=== PATIENT | female | born 1960 | race African-American/Black ===

== ENCOUNTER 2016-12-14 04:21 | Emergency (ER) | payer OTHER ==
[~2016-12-14] VITALS: Ht 160 cm; Wt 77.0 kg
[~2016-12-14 04:21] MED LIST: CEPH500C3 PO; OXYC-360 PO
[2016-12-14] MEDS ORDERED: ONDANSETRON HCL 4 MG/2 ML VIAL IV ONE (04:30)
[2016-12-14] MEDS ORDERED: SODIUM CHLORIDE 0.9% FLUSH 5 ML FLUSH IVF PRN (04:30)
[2016-12-14] MEDS ORDERED: LISI-515 PO (04:31)
[2016-12-14 04:32] VITALS: BP 100/72; PULSE 62; RESP 18; TEMP 97.8; O2SAT 97
--- NOTE | 2016-12-14 04:33 | PD ---
HPI Chief Complaint: Syncope/Near-Syncope Time Seen by Provider: 04:24 Travel History International Travel<30 days: No Contact w/Intl Traveler<30days: No Traveled to known affect area: No History of Present Illness HPI The patient is a 56-year-old female that around 2:00 this morning felt nausea, had a diarrhea stool and has not been eating or drinking very much in the last 24 hours. She had some near syncopal spells. When he back came her systolic blood pressures in the 80s and she had no radial pulse. The people at home said she almost lost consciousness. She did not injure herself. The ambulance personnel gave her 500 cc of saline and the blood pressure came up. She denies any fever or headache. She denies chest pain or shortness of breath. She does have some left upper quadrant abdominal discomfort which is minimal. The patient is a to [facility] care patient of Dr. Singh. [facility] Past Medical History Heart Rhythm Problems: No Cancer: No Cardiovascular Problems: Yes High Cholesterol: No Chest Pain: No Congestive Heart Failure: No Cerebrovascular Accident: No Diabetes: No Glaucoma: No Genitourinary: No Headaches: No Hepatitis: No Hiatal Hernia: No Hypertension: No Musculoskeletal: No Neurologic: Yes (DIZZINESS) Reproductive: Yes Respiratory: No Migraines: No Myocardial Infarction: No Seizures: No Thyroid Disease: No Past Surgical History Abdominal Surgery: No Cardiac Surgery: No Ear Surgery: No Endocrine Surgery: No Eye Surgery: No Genitourinary Surgery: No Gynecologic Surgery: No Oral Surgery: Yes (TOOTH EXTRACTION) Pacemaker: No Thoracic Surgery: No Social History Alcohol Use: No Tobacco Use: No Substance Use: No Allergies-Medications (Allergen,Severity, Reaction): Coded Allergies: No Known Allergies (Verified , 12/14/16) Reported Meds & Prescriptions Reported Meds & Active Scripts Active Reported Lisinopril 20 Mg Tab 20 Mg PO DAILY Review of Systems Except as stated in HPI: all other systems reviewed are Neg Physical Exam Narrative GENERAL: The patient is alert, oriented 3 in no apparent distress. Vital signs show temperature 100/72 with a pulse rate of 62 but otherwise normal. SKIN: Warm and dry. HEAD: Atraumatic. Normocephalic. EYES: Pupils equal and round. No scleral icterus. No injection or drainage. ENT: No nasal bleeding or discharge. Mucous membranes pink and moist. NECK: Trachea midline. No JVD. CARDIOVASCULAR: Regular rate and rhythm. No murmur appreciated. RESPIRATORY: No accessory muscle use. Clear to auscultation. Breath sounds equal bilaterally. GASTROINTESTINAL: Abdomen soft, non-tender, nondistended. Hepatic and splenic margins not palpable. MUSCULOSKELETAL: No obvious deformities. No clubbing. No cyanosis. No edema. NEUROLOGICAL: Awake and alert. No obvious cranial nerve deficits. Motor grossly within normal limits. Normal speech. PSYCHIATRIC: Appropriate mood and affect; insight and judgment normal. Data Data Last Documented VS Vital Signs Date Time Temp Pulse Resp B/P Pulse Ox O2 Delivery O2 Flow Rate FiO2 12/14/16 05:32 62 18 96/67 97 Room Air 12/14/16 04:32 97.8 Orders Ondansetron Inj (Zofran Inj) (12/14/16 04:30) Sodium Chlor 0.9% 1000 Ml Inj (Ns 1000 M (12/14/16 04:30) Complete Blood Count With Diff (12/14/16 04:26) Comprehensive Metabolic Panel (12/14/16 04:26) Lipase (12/14/16 04:26) Urinalysis - C+S If Indicated (12/14/16 04:26) Iv Access Insert/Monitor (12/14/16 04:26) Ecg Monitoring (12/14/16 04:26) Oximetry (12/14/16 04:26) Sodium Chloride 0.9% Flush (Ns Flush) (12/14/16 04:30) Electrocardiogram (12/14/16 04:40) Potassium Chloride (Kcl) (12/14/16 05:30) Labs Laboratory Tests Test 12/14/16 04:35 White Blood Count 10.3 TH/MM3 Red Blood Count 6.21 MIL/MM3 Hemoglobin 13.4 GM/DL Hematocrit 42.8 % Mean Corpuscular Volume 69.0 FL Mean Corpuscular Hemoglobin 21.6 PG Mean Corpuscular Hemoglobin 31.3 % Concent Red Cell Distribution Width 15.0 % Platelet Count 243 TH/MM3 Mean Platelet Volume 8.9 FL Neutrophils (%) (Auto) 80.3 % Lymphocytes (%) (Auto) 15.7 % Monocytes (%) (Auto) 3.4 % Eosinophils (%) (Auto) 0.4 % Basophils (%) (Auto) 0.2 % Neutrophils # (Auto) 8.3 TH/MM3 Lymphocytes # (Auto) 1.6 TH/MM3 Monocytes # (Auto) 0.4 TH/MM3 Eosinophils # (Auto) 0.0 TH/MM3 Basophils # (Auto) 0.0 TH/MM3 CBC Comment AUTO DIFF Differential Comment AUTO DIFF CONFIRMED Platelet Estimate NORMAL Platelet Morphology Comment CLUMPED Sodium Level 141 MEQ/L Potassium Level 3.1 MEQ/L Chloride Level 104 MEQ/L Carbon Dioxide Level 28.3 MEQ/L Anion Gap 9 MEQ/L Blood Urea Nitrogen 8 MG/DL Creatinine 0.97 MG/DL Estimat Glomerular Filtration 71 ML/MIN Rate Random Glucose 170 MG/DL Calcium Level 8.6 MG/DL Total Bilirubin 0.4 MG/DL Aspartate Amino Transf 17 U/L (AST/SGOT) Alanine Aminotransferase 23 U/L (ALT/SGPT) Alkaline Phosphatase 60 U/L Total Protein 7.2 GM/DL Albumin 3.6 GM/DL Lipase 88 U/L [facility] [place] Medical Decision Making Medical Screen Exam Complete: Yes Emergency Medical Condition: Yes Medical Record Reviewed: Yes Interpretation(s) The CBC is normal except for 80% neutrophils. The complete metabolic profile shows a potassium of 3.1, glucose of 170, GFR of 71 but is otherwise unremarkable. The lipase is normal. Differential Diagnosis Dehydration, hypo-/hyperglycemia, electrolyte disorder, gastroenteritis, gastritis, urinary tract infection Narrative Course It is now 0620 and the blood pressure is 115/67. The patient has now been hydrated adequately and she has made some urine. Patient feels much better at this time. Impression: Viral gastroenteritis Plan: The patient be given Zofran. She should follow-up with Dr. Singh as soon as possible. Diagnosis Primary Impression: Viral gastroenteritis Additional Impressions: Mild dehydration Hypotension Pre-syncope Additional Instructions: Follow-up with Dr. Singh as soon as possible. The Zofran is one tablet every 4-6 hours as needed for nausea. Make sure you stay well-hydrated. Med/Other Pt SpecificInfo: Prescription(s) given Scripts Ondansetron (Zofran)4 Mg Tab4 Mg PO Q6HR PRN (NAUSEA OR VOMITING) #20 TAB Ref 0 Prov:Shahzad Amado MD 12/14/16 Disposition: DISCHARGE HOME Condition: Stable Shahzad Amado MD Dec 14, 2016 04:33
[2016-12-14 04:36] VITALS: RESP 18; O2SAT 97
[2016-12-14 04:44] LABS: AUTOMATED NEUTROPHIL # 8.3 TH/MM3 (1.8-7.7); BASOPHIL % 0.2 % (0.0-2.0); EOSINOPHIL % 0.4 % (0.0-4.0); HEMATOCRIT 42.8 % (35.0-46.0); LYMPH % 15.7 % (9.0-44.0); LYMPHOCYTE # 1.6 TH/MM3 (1.0-4.8); MEAN CORPUSCULAR HEMOGLOBIN 21.6 PG (27.0-34.0); MEAN CORPUSCULAR HGB CONC 31.3 % (32.0-36.0); MONO % 3.4 % (0.0-8.0); NEUT % 80.3 % (16.0-70.0); PLATELET COUNT 243 TH/MM3 (150-450); RED BLOOD COUNT 6.21 MIL/MM3 (4.00-5.30); WHITE BLOOD COUNT 10.3 TH/MM3 (4.0-11.0)
[2016-12-14] MEDS: SODIUM CHLOR 0.9% 1000 ML INJ 1,000 ML IV SCH ×2 (04:47→05:05)
[2016-12-14 04:52] LABS: HEMO FLAGS AUTO DIFF
[2016-12-14 05:00] LABS: CHLORIDE 104 MEQ/L (98-107); POTASSIUM 3.1 MEQ/L (3.5-5.1); SODIUM (NA) 141 MEQ/L (136-145)
[2016-12-14 05:04] LABS: ANION GAP 9 MEQ/L (5-15); BICARBONATE 28.3 MEQ/L (21.0-32.0)
[2016-12-14 05:05] LABS: BLOOD UREA NITROGEN 8 MG/DL (7-18); PLATELET ESTIMATE SMEAR NORMAL (NORMAL); PLATELET MORPHOLOGY CLUMPED (NORMAL); SCAN/DIFF AUTO DIFF CONFIRMED
[2016-12-14 05:07] LABS: ALT (GPT) 23 U/L (10-53); AST (GOT) 17 U/L (15-37); GLOMERULAR FILTRATION RATE 71 ML/MIN (>89)
[2016-12-14 05:09] LABS: TOTAL BILIRUBIN ADULT 0.4 MG/DL (0.2-1.0)
[2016-12-14 05:10] LABS: ALKALINE PHOSPHATASE 60 U/L (45-117)
[2016-12-14] MEDS ORDERED: POTASSIUM CHLORIDE 20 MEQ CONTROLLED RELEASE TAB PO ONE (05:30)
[2016-12-14 05:32] VITALS: BP 96/67; PULSE 62; RESP 18; O2SAT 97
[2016-12-14 06:22] VITALS: BP 115/67; PULSE 61; RESP 18; O2SAT 96
[2016-12-14] MEDS ORDERED: ZOFR4TAB PO (06:24)
[2016-12-14 06:44] LABS: BLOOD, URINE TRACE (NEG); GLUCOSE,URINE NEG (NEG); KETONE, URINE NEG (NEG); NITRITE,URINE NEG (NEG); PH, URINE 6.5 (5.0-8.5)
[2016-12-14 06:49] LABS: METHOD OF COLLECTION CLEAN CATCH; URINE COLOR YELLOW (YELLW/STRAW)
[2016-12-14 06:51] LABS: BACTERIA, URINE RARE /hpf; COMMENT (UR) CULT NOT INDICATED; COMMENT2 (UR) MUCOUS PRESENT; CULTURE IF INDICATED CULT NOT INDICATED; HYALINE CAST, URINE 0-2 /lpf (RARE); SQUAMOUS EPITHELIAL CELL URINE 0-5 /hpf (0-5)
[2016-12-14 06:54] VITALS: BP 101/71; PULSE 81; RESP 18; O2SAT 99
--- NOTE | 2016-12-14 14:34 | EKG ---
Date Performed: 12/14/2016 Time Performed: 04:41:08 PTAGE: 56 years EKG: Sinus bradycardia Prolonged QT interval, new since prior tracing, rule out drug effect, ida ctrolyte embalance or myocardial ischemia Borderline ECG PREVIOUS TRACING : 07/01/2009 12.32 DOCTOR: Mel Ramon Interpretating Date/Time 12/14/2016 14:33:34
== END 2016-12-14 07:13 | disposition home or self-care (01) ==
LOC: PHED 04:21
DX: A08.4 Viral intestinal infection, unspecified (principal); E86.0 Dehydration; I95.9 Hypotension, unspecified; R55 Syncope and collapse
CPT/HCPCS: 80053; 81001; 83690; 85025; 93005; 96361; 96374; 99284; J2405; J7030

== ENCOUNTER 2018-01-15 18:54 | Observation (INO) | payer OTHER ==
[~2018-01-15] VITALS: Ht 160 cm; Wt 75.0 kg
[~2018-01-15 18:54] MED LIST changes: -CEPH500C3 PO; +LISI-515 PO; -OXYC-360 PO; +ZOFR4TAB PO
[2018-01-15 19:03] VITALS: BP 200/95; PULSE 68; RESP 18; TEMP 98.7; O2SAT 99
[2018-01-15 19:21] VITALS: BP 172/102; PULSE 60; RESP 20; TEMP 98; O2SAT 99
[2018-01-15 19:23] VITALS: RESP 20
--- NOTE | 2018-01-15 19:42 | PD ---
HPI Chief Complaint: Chest Pain Time Seen by Provider: 19:18 Travel History International Travel<30 days: No Contact w/Intl Traveler<30days: No Traveled to known affect area: No History of Present Illness HPI The patient is a 57 year old female who presents to [facility] emergency department with a history of "chest discomfort" that began this afternoon. It began when she was at the playground with her grandchild. She reports that she first began to have right arm numbness, nausea, and a headache that started an hour prior to the chest pain beginning. She reports that the headache is now resolved along with the nausea and right arm numbness. She denies having any weakness of her arms or legs. She denies having any other tingling sensations, facial droop, difficulty with word finding ability, or slurred speech. The chest pain is located on the left side of the chest. It is improved with deep breathing. She denies any aggravating factors. She reports having a prior history of hypertension, hyperlipidemia. FH: no CAD. She denies any prior history of diabetes or tobacco use she denies any personal history of heart disease, DVT or PE. On review of systems otherwise, the patient denies having any known recent fevers, cough, congestion, neck pain, shortness of breath, abdominal pain, vomiting, diarrhea, urinary symptoms, or other neurologic symptoms. [facility] Past Medical History Narrative Medical The patient's past medical history is significant for hypertension, hyperlipidemia. Heart Rhythm Problems: No Cancer: No Cardiovascular Problems: Yes High Cholesterol: No Chest Pain: No Congestive Heart Failure: No Cerebrovascular Accident: No Diabetes: No Diminished Hearing: No Gastrointestinal Disorders: No Glaucoma: No Genitourinary: No Headaches: No Hepatitis: No Hiatal Hernia: No Hypertension: Yes Musculoskeletal: No Neurologic: Yes Reproductive: Yes Respiratory: No Migraines: No Myocardial Infarction: No Seizures: No Thyroid Disease: No Tetanus Vaccination: < 5 Years Influenza Vaccination: No Menopausal: Yes Past Surgical History Narrative Surgical The patient's past surgical history is significant for dental extractions, hysterectomy Abdominal Surgery: No Cardiac Surgery: No Ear Surgery: No Endocrine Surgery: No Eye Surgery: No Genitourinary Surgery: No Gynecologic Surgery: No Hysterectomy: Yes (parial) Neurologic Surgery: No Oral Surgery: Yes (TOOTH EXTRACTION) Pacemaker: No Thoracic Surgery: No Other Surgery: No Social History Alcohol Use: Yes (occasional wine) Tobacco Use: No Substance Use: No Allergies-Medications (Allergen,Severity, Reaction): Coded Allergies: hydrocodone (Verified Allergy, Severe, 01/15/18) nausea and vomiting Reported Meds & Prescriptions Reported Meds & Active Scripts Active Reported Lisinopril 20 Mg Tab 20 Mg PO DAILY Review of Systems Except as stated in HPI: all other systems reviewed are Neg General / Constitutional: No: Fever Eyes: No: Visual changes HENT: No: Headaches, Rhinorrhea, Congestion Cardiovascular: Positive: Chest Pain or Discomfort, No: Dyspnea on exertion Respiratory: No: Shortness of Breath Gastrointestinal: Positive: Nausea, No: Vomiting, Diarrhea, Abdominal Pain, Changes in Bowel Habits Genitourinary: No: Dysuria Musculoskeletal: No: Pain Skin: No Rash Neurologic: Positive: Paresthesia, No: Weakness, Focal Abnormalities, Change in Mentation, Slurred Speech Psychiatric: No: Depression Endocrine: No: Polydipsia Hematologic/Lymphatic: No: Easy Bruising Physical Exam Narrative General: The patient is a well-developed well-nourished female in no acute distress. Head and Neck exam: Head is normocephalic atraumatic. Eyes: EOMI, pupils are equal round and reactive to light. Nose: Midline septum with pink mucous membranes Mouth: Dentition unremarkable. Moist mucus membranes. Posterior oropharynx is not erythematous. No tonsillar hypertrophy. Uvula midline. Airway patent. Neck: No palpable lymphadenopathy. No nuchal rigidity. No thyromegaly. Cardiovascular: Regular rate and rhythm without murmurs, gallops, or rubs. No pulse deficit to the extremities on simultaneous auscultation and palpation of her radial artery. Lungs: Clear to auscultation bilaterally. No wheezes, rhonchi, or rales. Abdomen: Soft, without tenderness to palpation in all 4 quadrants of the abdomen. No guarding, rebound, or rigidity. Normal bowel sounds are audible. No tenderness on palpation of McBurney's point. Extremities: No clubbing, cyanosis, or edema. 2+ pulses in all 4 extremities. No calf tenderness on palpation Back: No costovertebral angle tenderness to palpation. Neurologic Exam: Cranial nerves 2-12 were intact on exam. Strength is 5/5 in all 4 extremities. No sensory deficits noted. No dysdiadochokinesis. Good finger to nose and Heel to sen bilaterally. Skin Exam: No rash noted. Intact skin that is warm and dry. Data Data Last Documented VS Vital Signs Date Time Temp Pulse Resp B/P (MAP) Pulse Ox O2 Delivery O2 Flow Rate FiO2 01/15/18 20:32 98.2 62 20 161/90 (113) 99 Room Air Orders Orders Electrocardiogram (01/15/18 19:18) Complete Blood Count With Diff (01/15/18:18) Comprehensive Metabolic Panel (01/15/18:18) Creatine Kinase (Cpk) (01/15/18 19:18) Ckmb (Isoenzyme) Profile (01/15/18 19:18) Troponin I (01/15/18:18) B-Type Natriuretic Peptide (01/15/18:18) Prothrombin Time / Inr (Pt) (01/15/18:18) Act Partial Throm Time (Ptt) (01/15/18:18) Lipase (01/15/18:18) Urinalysis - C+S If Indicated (01/15/18:18) Magnesium (Mg) (01/15/18 19:18) Chest, Single Ap (01/15/18:18) Ecg Monitoring (01/15/18:18) Oximetry (01/15/18:18) Iv Access Insert/Monitor (01/15/18:18) Nitroglycerin 2% Oint (Nitroglycerin 2% (01/15/18 20:00) Aspirin Chew (Aspirin Chew) (01/15/18 20:00) Ct Brain W/O Iv Contrast(Rout) (01/15/18 20:16) CKMB (01/15/18 19:42) CKMB% (01/15/18 19:42) Admit Order (Ed Use Only) (01/15/18 21:50) Labs Laboratory Tests Test 01/15/18 19:42 White Blood Count 4.2 TH/MM3 Red Blood Count 5.69 MIL/MM3 Hemoglobin 12.3 GM/DL Hematocrit 39.2 % Mean Corpuscular Volume 68.9 FL Mean Corpuscular Hemoglobin 21.7 PG Mean Corpuscular Hemoglobin Concent 31.5 % Red Cell Distribution Width 16.1 % Platelet Count 221 TH/MM3 Mean Platelet Volume 9.0 FL Neutrophils (%) (Auto) 57.9 % Lymphocytes (%) (Auto) 34.1 % Monocytes (%) (Auto) 6.6 % Eosinophils (%) (Auto) 1.1 % Basophils (%) (Auto) 0.3 % Neutrophils # (Auto) 2.4 TH/MM3 Lymphocytes # (Auto) 1.4 TH/MM3 Monocytes # (Auto) 0.3 TH/MM3 Eosinophils # (Auto) 0.0 TH/MM3 Basophils # (Auto) 0.0 TH/MM3 CBC Comment DIFF FINAL Differential Comment Prothrombin Time 10.7 SEC Prothromb Time International Ratio 1.1 RATIO Activated Partial Thromboplast Time 25.0 SEC Blood Urea Nitrogen 10 MG/DL Creatinine 0.85 MG/DL Random Glucose 84 MG/DL Total Protein 7.5 GM/DL Albumin 4.0 GM/DL Calcium Level 9.2 MG/DL Magnesium Level 2.1 MG/DL Alkaline Phosphatase 59 U/L Aspartate Amino Transf (AST/SGOT) 27 U/L Alanine Aminotransferase (ALT/SGPT) 28 U/L Total Bilirubin 0.3 MG/DL Sodium Level 140 MEQ/L Potassium Level 3.8 MEQ/L Chloride Level 106 MEQ/L Carbon Dioxide Level 28.5 MEQ/L Anion Gap 6 MEQ/L Estimat Glomerular Filtration Rate 83 ML/MIN Total Creatine Kinase 101 U/L Creatine Kinase MB 1.2 NG/ML Troponin I LESS THAN 0.02 NG/ML B-Type Natriuretic Peptide 7 PG/ML Lipase 116 U/L MDM Medical Decision Making Medical Screen Exam Complete: Yes Emergency Medical Condition: Yes Medical Record Reviewed: Yes Interpretation(s) Last Impressions Head CT 01/15/182015 Signed Impressions: Service Date/Time: Monday, January 15, 2018 21:12 - CONCLUSION: 1. No acute intracranial abnormality. Devon Simon MD Chest X-Ray 01/15/181917 Signed Impressions: Service Date/Time: Monday, January 15, 2018 19:25 - CONCLUSION: Normal examination. Devon Simon MD Differential Diagnosis Acute coronary syndrome, versus dissecting aorta, versus anxiety disorder, versus intracranial abnormality, versus electrolyte derangement, versus acid reflux Narrative Course During the course of the patient's emergency department visit, the patient's history, examination, and differential diagnosis were reviewed with the patient. The patient was placed on a monitoring analyst with oximetry and frequent blood pressure monitoring. The patient had IV access obtained and blood work sent for analysis. The patient had an EKG done on arrival that shows a sinus bradycardia heart rate of 56, QRS duration 76 ms, QTC [address] segment elevation. T waves are inverted in V1. The patient was initially provided aspirin 324 mg p.o. 1, nitroglycerin 1 inch the chest wall The patient's laboratory studies were reviewed and remarkable for CMP is remarkable for a GFR of 83, CPK 101, troponin I is less than 0.02, BNP is 7, lipase 116, white count 4.2, hemoglobin 12.3, platelets 221 with a normal differential, PT 10.7, PTT 25 Radiology studies were reviewed and remarkable for a chest x-ray that shows no acute abnormality, CT scan of the brain shows no acute abnormality The patient will be admitted to the chest pain center for rule out serial cardiac enzyme protocol followed by consideration of stress testing for her history of chest pain and a medical history of hyperlipidemia and hypertension The patient's results were discussed with the patient, including the plan of care. I explained that further testing and/ or monitoring is indicated based on the patient's history, examination, and/ or laboratory findings. Therefore, I recommended admission for additional evaluation. The patient expressed understanding and was agreeable with this plan. The patient was admitted to the hospital in stable condition and sent to a bed under the care of the chest pain center. Diagnosis Primary Impression: Chest pain, rule out acute myocardial infarction Admitting Information Admitting Physician Requests: Radha Block MD Jan 15, 2018 19:42
--- NOTE | 2018-01-15 19:42 | RADRPT ---
EXAM DATE/TIME: 01/15/2018 19:25 [facility] COMPARISON: No previous studies available for comparison. INDICATIONS : Chest Pain MEDICAL HISTORY : Hypertension. SURGICAL HISTORY : None. ENCOUNTER: Initial ACUITY: 1 day PAIN SCORE: 5/10 LOCATION: chest FINDINGS: A single view of the chest demonstrates the lungs to be symmetrically aerated without evidence of mas s, infiltrate or effusion. The cardiomediastinal contours are unremarkable. Osseous structures are intact. CONCLUSION: Normal examination. Devon Simon MD on January 15, 2018 at 19:39 Board Certified Radiologist. This report was verified electronically.
[2018-01-15] MEDS ORDERED: ASPIRIN 81 MG CHEW TAB CHEW ONE (20:00)
[2018-01-15] MEDS ORDERED: NITROGLYCERIN 2% OINT 1 GM PACKET TOPICAL ONE (20:00)
[2018-01-15 20:23] LABS: AUTOMATED NEUTROPHIL # 2.4 TH/MM3 (1.8-7.7); BASOPHIL % 0.3 % (0.0-2.0); EOSINOPHIL % 1.1 % (0.0-4.0); HEMATOCRIT 39.2 % (35.0-46.0); HEMOGLOBIN 12.3 GM/DL (11.6-15.3); LYMPH % 34.1 % (9.0-44.0); LYMPHOCYTE # 1.4 TH/MM3 (1.0-4.8); MEAN CELL VOLUME 68.9 FL (80.0-100.0); MEAN CORPUSCULAR HEMOGLOBIN 21.7 PG (27.0-34.0); MEAN CORPUSCULAR HGB CONC 31.5 % (32.0-36.0); MONO % 6.6 % (0.0-8.0); MONOCYTE # 0.3 TH/MM3 (0-0.9); NEUT % 57.9 % (16.0-70.0); PLATELET COUNT 221 TH/MM3 (150-450); RED BLOOD COUNT 5.69 MIL/MM3 (4.00-5.30); RED CELL DISTRIBUTION WIDTH 16.1 % (11.6-17.2); WHITE BLOOD COUNT 4.2 TH/MM3 (4.0-11.0)
[2018-01-15 20:32] VITALS: BP 161/90; PULSE 62; RESP 20; TEMP 98.2; O2SAT 99
[2018-01-15 20:36] LABS: INTERNATIONAL NORMALIZED RATIO 1.1 RATIO; PROTHROMBIN TIME - PATIENT 10.7 SEC (9.8-11.6)
[2018-01-15 20:45] LABS: ALT (GPT) 28 U/L (10-53); BICARBONATE 28.5 MEQ/L (21.0-32.0); BLOOD UREA NITROGEN 10 MG/DL (7-18); CALCIUM 9.2 MG/DL (8.5-10.1); CHLORIDE 106 MEQ/L (98-107); CREATININE 0.85 MG/DL (0.50-1.00); GLOMERULAR FILTRATION RATE 83 ML/MIN (>89); GLUCOSE,RANDOM 84 MG/DL (74-106); MAGNESIUM 2.1 MG/DL (1.5-2.5); SODIUM (NA) 140 MEQ/L (136-145)
[2018-01-15 20:57] LABS: ALKALINE PHOSPHATASE 59 U/L (45-117); AST (GOT) 27 U/L (15-37); TOTAL BILIRUBIN ADULT 0.3 MG/DL (0.2-1.0); TOTAL PROTEIN 7.5 GM/DL (6.4-8.2); TROPONIN I LESS THAN 0.02 NG/ML (0.02-0.05)
--- NOTE | 2018-01-15 21:32 | RADRPT ---
EXAM DATE/TIME: 01/15/2018 21:12 [facility] COMPARISON: No previous studies available for comparison. INDICATIONS : Dizziness. RADIATION DOSE: 48.25 CTDIvol (mGy) MEDICAL HISTORY : Cardiovascular disease. Hypertension. SURGICAL HISTORY : Hysterectomy. ENCOUNTER: Initial ACUITY: 1 day PAIN SCALE: 0/10 LOCATION: cranial TECHNIQUE: Multiple contiguous axial images were obtained of the head. Using automated exposure control and adj ustment of the mA and/or kV according to patient size, radiation dose was kept as low as reasonably a chievable to obtain optimal diagnostic quality images. DICOM format image data is available electro nically for review and comparison. FINDINGS: CEREBRUM: The ventricles are normal for age. No evidence of midline shift, mass lesion, hemorrhage or acute in farction. No extra-axial fluid collections are seen. POSTERIOR FOSSA: The cerebellum and brainstem are intact. The 4th ventricle is midline. The cerebellopontine angle i s unremarkable. EXTRACRANIAL: The visualized portion of the orbits is intact. SKULL: The calvaria is intact. No evidence of skull fracture. CONCLUSION: 1. No acute intracranial abnormality. Devon Simon MD on January 15, 2018 at 21:25 Board Certified Radiologist. This report was verified electronically.
[2018-01-16] MEDS ORDERED: ONDANSETRON HCL 4 MG/2 ML VIAL IV PUSH PRN (00:45)
[2018-01-16] MEDS ORDERED: SODIUM CHLORIDE 0.9% FLUSH 10 ML FLUSH IV FLUSH PRN (00:45)
[2018-01-16] MEDS ORDERED: ACETAMINOPHEN 500 MG CPLT PO PRN (00:45)
[2018-01-16 01:34] VITALS: BP 131/82; PULSE 54; RESP 17; TEMP 98.3; O2SAT 95
[2018-01-16 01:41] VITALS: PULSE 54
[2018-01-16 02:20] LABS: TROPONIN I LESS THAN 0.02 NG/ML (0.02-0.05)
[2018-01-16 04:50] VITALS: PULSE 55
[2018-01-16 04:57] VITALS: BP 116/76; PULSE 57; RESP 16; TEMP 98.4; O2SAT 97
[2018-01-16 07:00] VITALS: PULSE 65
[2018-01-16] MEDS ORDERED: LISI10TA3 PO (08:00)
--- NOTE | 2018-01-16 08:39 | HHI.HP ---
HPI Primary Care Physician Hubert Singh MD, PhD Chief Complaint Chest pain History of Present Illness This is a 57-year-old female that presents to ED via private vehicle with a complaint of chest discomfort. Patient states she had a throbbing discomfort in the center of her chest that lasted throughout the entire day yesterday. She was nauseous. No shortness of breath or diaphoresis. Found nothing to worsen or improve the discomfort. She is also running a frontal headache that she describes as an ache. Denies numbness tingling his extremities. Denies visual changes. Denies history of CAD. Cannot recall prior cardiac workup. Denies recent illness. Denies fevers or chills. Review of Systems General: Patient denies fevers, chills, and recent travel. HEENT: Complains of frontal headache that she describes as an ache. Patient denies sore throat and difficulty swallowing. Cardiovascular: Has the chest discomfort as mentioned above. Denies sensation of heart beating rapidly or irregularly. No syncope. Respiratory: denies shortness of breath or inspirational chest discomfort. Denies coughing wheezing or hemoptysis. GI: She was nauseous. Patient denies vomiting, diarrhea, abdominal pain, bloody stools. Musculoskeletal: Patient denies joint pain or edema. Denies calf pain or edema. Neurovascular: Patient denies numbness, tingling, weakness in extremities. Denies headache. Endocrine: Denies polyuria and polydipsia. Hematologic: Denies easy bruising. Skin: Denies rash or itching. Past Family Social History Allergies: Coded Allergies: hydrocodone (Verified Allergy, Severe, 01/15/18) nausea and vomiting Past Medical History Hypertension. Denies hyperlipidemia, diabetes, and CAD. Lifetime non-smoker. Past Surgical History Noncontributory. Reported Medications Reported Meds & Active Scripts Active Lisinopril 10 Mg Tab 10 Mg PO DAILY Active Ordered Medications Current Medications Medications (Trade) Dose Ordered Sig/Derrick Route Start Time Stop Time Status Last Admin (NS Flush) 2 ml UNSCH PRN IV FLUSH 01/16/18 00:45 (NS Flush) 2 ml BID IV FLUSH 01/16/18 09:00 (Tylenol) 500 mg Q4H PRN PO 01/16/18 00:45 (Zofran Inj) 4 mg Q6H PRN IV PUSH 01/16/18 00:45 (Pepcid) 20 mg BID PO 01/16/18 09:00 (Prinivil) 10 mg DAILY PO 01/16/18 09:00 Family History Denies family history of CAD. Social History Lifetime non-smoker. Denies alcohol or illicit drugs. Physical Exam Vital Signs Vital Signs Date Time Temp Pulse Resp B/P (MAP) Pulse Ox O2 Delivery O2 Flow Rate FiO2 01/16/18 04:57 98.4 57 16 116/76 (89) 97 01/16/18 04:50 55 01/16/18 01:41 54 01/16/18 01:34 98.3 54 17 131/82 (98) 95 01/15/18 20:32 98.2 62 20 161/90 (113) 99 Room Air 01/15/18 19:23 20 01/15/18 19:21 98.0 60 20 172/102 (125) 99 Room Air 01/15/18 19:03 98.7 68 18 200/95 (130) 99 Physical Exam GENERAL: This is a well-nourished, well-developed patient, in no apparent distress. Patient speaks in clear complete sentences. Patient is pleasant. HEENT: Head is atraumatic and normocephalic. Neck is supple without lymphadenopathy and trachea is midline. No JVD or carotid bruits. CARDIOVASCULAR: Regular rate and rhythm without murmurs, gallops, or rubs. RESPIRATORY: Clear to auscultation. Breath sounds equal bilaterally. No wheezes , rales, or rhonchi. Chest wall is nontender. No use of accessory muscles. GASTROINTESTINAL: Abdomen is nontender, nondistended. Abdomen soft. No obvious pulsatile mass or bruit. No CVA tenderness. Strong femoral pulses bilaterally. Normal bowel sounds in all quadrants. MUSCULOSKELETAL: Patient is moving upper and lower extremities freely. No calf tenderness or edema, no Homans sign. Strong pulses in upper and lower extremities. NEUROLOGICAL: Patient is alert and oriented. Cranial nerves 2-12 are grossly intact. No focal deficits and speech is clear. SKIN: No rash and turgor is normal. Laboratory Laboratory Tests Test 01/15/18 19:42 01/16/18 01:50 White Blood Count 4.2 Red Blood Count 5.69 Hemoglobin 12.3 Hematocrit 39.2 Mean Corpuscular Volume 68.9 Mean Corpuscular Hemoglobin 21.7 Mean Corpuscular Hemoglobin Concent 31.5 Red Cell Distribution Width 16.1 Platelet Count 221 Mean Platelet Volume 9.0 Neutrophils (%) (Auto) 57.9 Lymphocytes (%) (Auto) 34.1 Monocytes (%) (Auto) 6.6 Eosinophils (%) (Auto) 1.1 Basophils (%) (Auto) 0.3 Neutrophils # (Auto) 2.4 Lymphocytes # (Auto) 1.4 Monocytes # (Auto) 0.3 Eosinophils # (Auto) 0.0 Basophils # (Auto) 0.0 CBC Comment DIFF FINAL Differential Comment Prothrombin Time 10.7 Prothromb Time International Ratio 1.1 Activated Partial Thromboplast Time 25.0 Blood Urea Nitrogen 10 Creatinine 0.85 Random Glucose 84 Total Protein 7.5 Albumin 4.0 Calcium Level 9.2 Magnesium Level 2.1 Alkaline Phosphatase 59 Aspartate Amino Transf (AST/SGOT) 27 Alanine Aminotransferase (ALT/SGPT) 28 Total Bilirubin 0.3 Sodium Level 140 Potassium Level 3.8 Chloride Level 106 Carbon Dioxide Level 28.5 Anion Gap 6 Estimat Glomerular Filtration Rate 83 Total Creatine Kinase 101 86 Creatine Kinase MB 1.2 Troponin I LESS THAN 0.02 LESS THAN 0.02 B-Type Natriuretic Peptide 7 Lipase 116 Result Diagram: 01/15/18194101/15/181941 Imaging Last [address] 01/15/182015 Signed Impressions: Service Date/Time: Monday, January 15, 2018 21:12 - CONCLUSION: 1. No acute intracranial abnormality. Devon Simon MD Chest X-Ray 01/15/181917 Signed Impressions: Service Date/Time: Monday, January 15, 2018 19:25 - CONCLUSION: Normal examination. Devon Simon MD Course EKGs are sinus bradycardia without significant ST segment depressions or elevations. Caprini VTE Risk Assessment Caprini VTE Risk Assessment: No/Low Risk (score <= 1) Caprini Risk Assessment Model Point Value = 1 Point Value = 2 Point Value = 3 Point Value = 5 Age 41-60 Minor surgery BMI > 25 kg/m2 Swollen legs Varicose veins or History of unexplained or recurrent spontaneous Oral contraceptives or hormone replacement Sepsis (< 1 month) Serious lung disease, including pneumonia (< 1 month) Abnormal pulmonary function Acute myocardial infarction Congestive heart failure (< 1 month) History of inflammatory bowel disease Medical patient at bed rest Age 61-74 Arthroscopic surgery Major open surgery (> 45 min) Laparoscopic surgery (> 45 min) Malignancy Confined to bed (> 72 hours) Immobilizing plaster cast Central venous access Age >= 75 History of VTE Family history of VTE Factor V Leiden Prothrombin [id number] Lupus anticoagulant Anticardiolipin antibodies Elevated serum homocysteine Heparin-induced thrombocytopenia Other congenital or acquired thrombophilia Stroke (< 1 month) Elective arthroplasty Hip, pelvis, or leg fracture Acute spinal cord injury (< 1 month) Prophylaxis Regimen Total Risk Factor Score Risk Level Prophylaxis Regimen 0-1 Low Early ambulation 2 Moderate Order ONE of the following: *Sequential Compression Device (SCD) *Heparin 5000 units SQ BID 3-4 Higher Order ONE of the following medications: *Heparin 5000 units SQ TID *Enoxaparin/Lovenox 40 mg SQ daily (WT < 150 kg, CrCl > 30 mL/min) *Enoxaparin/Lovenox 30 mg SQ daily (WT < 150 kg, CrCl > 10-29 mL/min) *Enoxaparin/Lovenox 30 mg SQ BID (WT < 150 kg, CrCl > 30 mL/min) AND/OR *Sequential Compression Device (SCD) 5 or more Highest Order ONE of the following medications: *Heparin 5000 units SQ TID (Preferred with Epidurals) *Enoxaparin/Lovenox 40 mg SQ daily (WT < 150 kg, CrCl > 30 mL/min) *Enoxaparin/Lovenox 30 mg SQ daily (WT < 150 kg, CrCl > 10-29 mL/min) *Enoxaparin/Lovenox 30 mg SQ BID (WT < 150 kg, CrCl > 30 mL/min) AND *Sequential Compression Device (SCD) Assessment and Plan Assessment and Plan * Chest pain: Her symptoms appear atypical. She was seen by Dr. Christiano Rao of cardiology in the chest pain center. She had serial cardiac enzymes and EKGs for ruling out purposes. At this time she will have a Lexiscan. She will likely be discharged home if stress test is nonischemic with instructions to follow-up with PCP and to return to ED for interval issues. * Hypertension: Continue lisinopril. Continue to monitor. Patient is stable at this time. She is agreeable to this plan. Severino Orellana Jan 16, 2018 08:39
[2018-01-16] MEDS ORDERED: LISINOPRIL 10 MG TAB PO SCH (09:00)
[2018-01-16] MEDS ORDERED: FAMOTIDINE 20 MG TAB PO SCH (09:00)
[2018-01-16] MEDS ORDERED: SODIUM CHLORIDE 0.9% FLUSH 10 ML FLUSH IV FLUSH SCH (09:00)
[2018-01-16] MEDS ORDERED: REGADENOSON INJ 0.4 MG/5 ML SYR ONE (09:34)
--- NOTE | 2018-01-16 11:07 | RADRPT ---
EXAM DATE/TIME: 01/16/2018 09:28 [facility] COMPARISON: No previous studies available for comparison. INDICATIONS : Mid chest pain for one day. Angina. DOSE: 26.3 mCi Tc99m Myoview at stress. 8.6 mCi Tc99m Myoview at rest. 0.4 mg Lexiscan STRESS SYMPTOMS: Warm and flush. EJECTION FRACTION: 59% MEDICAL HISTORY : Hypertension. SURGICAL HISTORY : Hysterectomy. ENCOUNTER: Initial ACUITY: 1 day PAIN SCALE: 3/10 LOCATION: Midsternal chest TECHNIQUE: The patient underwent pharmacologic stress with infusion of prescribed dose. Continuous ECG tracing was monitored during stress. Gated SPECT imaging was performed after stress and conventional SPECT i maging was performed at rest. The examination was performed on a SPECT/CT scanner, both attenuation and non-corrected datasets were reviewed. FINDINGS: DISTRIBUTION: The maximum perfused segment at stress is in the lateral wall. PERFUSION STUDY: The pattern of perfusion at stress shows about 10% redistribution in the low lateral wall which would not be considered statistically significant. Next diminished perfusion to the apex. GATED STUDY: There is intact wall motion and thickening without hypokinetic or dyskinetic segments. CONCLUSION: 1. Fixed diminished apical perfusion may represent an old apical infarct or apical thinning. No scint igraphic findings of anemia, however. 2. Adequate wall motion throughout with an estimated ejection fraction of 59% RISK CATEGORY: Low (<1% Annual Mortality Rate) Carlitos Christian MD on January 16, 2018 at 11:03 Board Certified Radiologist. This report was verified electronically.
[2018-01-16 12:09] VITALS: BP 132/82; PULSE 63; RESP 20; TEMP 98.2; O2SAT 97
--- NOTE | 2018-01-16 12:14 | HHI.DCPOC ---
Discharge Care Plan Diagnosis: (1) Chest pain (2) Hypertension Goals to Promote Your Health * To prevent worsening of your condition and complications * To maintain your health at the optimal level Directions to Meet Your Goals Take your medications as prescribed Follow your dietary instruction Follow activity as directed Keep your appointments as scheduled Take your immunizations and boosters as scheduled If your symptoms worsen call your PCP, if no PCP go to Urgent Care Center or Emergency Room Smoking is Dangerous to Your Health. Avoid second hand smoke Call the 24-hour hour crisis hotline for domestic abuse at Severino Orellana Jan 16, 2018 12:14
--- NOTE | 2018-01-17 16:09 | TR ---
Date Performed: 01/16/2018 Time Performed: 09:43:52 DOCTOR: Emely Jurado DRUG LIST: CLINICAL HISTORY: ANGINA REASON FOR TEST: Angina REASON FOR ENDING: OBSERVATION: CONCLUSION: Lexiscan stress test was performed under standard four minute protocol. Radionuclid e was injected one minute prior to ending the test. No electrocardiographic abormalities were present to suggest ischemia. Nuclear imaging and interpretation are pending. COMMENTS:
--- NOTE | 2018-01-17 16:12 | EKG ---
Date Performed: 01/16/2018 Time Performed: 01:38:22 PTAGE: 57 years EKG: SINUS BRADYCARDIA NONSPECIFIC T-WAVE ABNORMALITY BORDERLINE ECG Since PREVIOUS TRACING , no significant change noted PREVIOUS TRACIN01/15/2018 19.40 DOCTOR: Emely Jurado Interpretating Date/Time 01/17/2018 16:12:11
--- NOTE | 2018-01-17 16:13 | EKG ---
Date Performed: 01/16/2018 Time Performed: 04:58:18 PTAGE: 57 years EKG: SINUS BRADYCARDIA NONSPECIFIC T-WAVE ABNORMALITY BORDERLINE ECG Since PREVIOUS TRACING , no significant change noted PREVIOUS TRACIN01/16/2018 01.38 DOCTOR: Emely Jurado Interpretating Date/Time 01/17/2018 16:12:53
--- NOTE | 2018-01-18 15:08 | EKG ---
Date Performed: 01/15/2018 Time Performed: 19:40:06 PTAGE: 57 years EKG: SINUS BRADYCARDIA BORDERLINE ECG PREVIOUS TRACING : 12/14/2016 04.41 DOCTOR: Ravi Grey Interpretating Date/Time 01/18/2018 15:06:37
== END 2018-01-16 17:25 | disposition home or self-care (01) ==
LOC: NEPC 18:54 → NEDA 21:51 → NEPFCDU 01-16 01:16
PROVIDERS: ADMIT Internal Medicine Interventional Cardiology; ATTEND Internal Medicine Interventional Cardiology
DX: R07.89 Other chest pain (principal); I10 Essential (primary) hypertension; R94.31 Abnormal electrocardiogram [ECG] [EKG]; E78.5 Hyperlipidemia, unspecified; Z79.82 Long term (current) use of aspirin; Z90.710 Acquired absence of both cervix and uterus
CPT/HCPCS: 70450; 71045; 78452; 80053; 82550; 82552; 83690; 83735; 83880; 84484; 85025; 85610; 85730; 93005; 93017; 99285; A9502; G0378; J2785; J3010

== ENCOUNTER 2018-04-10 07:48 | Emergency (ER) | payer OTHER ==
[~2018-04-10] VITALS: Ht 160 cm; Wt 70.0 kg
[~2018-04-10 07:48] MED LIST changes: -LISI-515 PO; +LISI10TA3 PO; -ZOFR4TAB PO
[2018-04-10 07:56] VITALS: BP 152/72; PULSE 62; RESP 16; TEMP 97; O2SAT 98
[2018-04-10] MEDS ORDERED: SODIUM CHLOR 0.9% 1000 ML INJ 1,000 ML IV SCH (08:16)
--- NOTE | 2018-04-10 08:20 | PD ---
HPI Chief Complaint: Pain: Acute or Chronic Time Seen by Provider: 08:06 Travel History International Travel<30 days: No Contact w/Intl Traveler<30days: No Traveled to known affect area: No History of Present Illness HPI 57-year-old female presents emergency department for evaluation of right shoulder and right flank that woke her up this morning. Says that the area. Feels "uncomfortable", nonradiating without palliative or provocative factors. Says that she is lying on her left lateral decubitus position because this is the position of comfort. She denies any pain however. Says she has associated lightheadedness and nausea. Says that she try to have a bowel movement but does not relieve her discomfort. She denies fevers or chills. Denies chest pain or shortness of breath. She has a history of hypertension but denies any other medical issues. Denies history of abdominal surgeries. PFSH Past Medical History Heart Rhythm Problems: No Cancer: No Cardiovascular Problems: Yes (HTN) High Cholesterol: No Chest Pain: No Congestive Heart Failure: No Cerebrovascular Accident: No Diabetes: No Diminished Hearing: No Gastrointestinal Disorders: No Glaucoma: No Genitourinary: No Headaches: No Hepatitis: No Hiatal Hernia: No Hypertension: Yes Musculoskeletal: No Neurologic: Yes Reproductive: Yes Respiratory: No Migraines: No Myocardial Infarction: No Seizures: No Thyroid Disease: No Menopausal: Yes Past Surgical History Abdominal Surgery: No Cardiac Surgery: No Ear Surgery: No Endocrine Surgery: No Eye Surgery: No Genitourinary Surgery: No Gynecologic Surgery: No Hysterectomy: Yes (parial) Neurologic Surgery: No Oral Surgery: Yes (TOOTH EXTRACTION) Pacemaker: No Thoracic Surgery: No Other Surgery: No Social History Alcohol Use: Yes (occasional wine) Tobacco Use: No Substance Use: No Allergies-Medications (Allergen,Severity, Reaction): Coded Allergies: hydrocodone (Verified Allergy, Severe, 04/10/18) nausea and vomiting Reported Meds & Prescriptions Reported Meds & Active Scripts Active Lisinopril 10 Mg Tab 10 Mg PO DAILY Review of Systems Except as stated in HPI: all other systems reviewed are Neg Physical Exam Narrative GENERAL: Well-developed, well-nourished in no apparent distress lying left lateral decubitus SKIN: Focused skin assessment warm/dry. HEAD: Atraumatic. Normocephalic. EYES: Pupils equal and round. No scleral icterus. No injection or drainage. ENT: No nasal bleeding or discharge. Mucous membranes pink and moist. NECK: Trachea midline. No JVD. No lymphadenopathy CARDIOVASCULAR: Regular rate and rhythm. No murmur appreciated. RESPIRATORY: No accessory muscle use. Clear to auscultation. Breath sounds equal bilaterally. GASTROINTESTINAL: Abdomen soft, mildly tender to the right upper quadrant, nondistended. No CVA tenderness. No rebound tenderness. MUSCULOSKELETAL: No obvious deformities. No clubbing. No cyanosis. No edema. No exacerbation of pain with hip flexion Tenderness palpation to the right posterior shoulder girdle and paraspinous muscles of the thoracic spine NEUROLOGICAL: Awake and alert. No obvious cranial nerve deficits. Motor grossly within normal limits. Normal speech. PSYCHIATRIC: Appropriate mood and affect; insight and judgment normal. Data Data Last Documented VS Vital Signs Date Time Temp Pulse Resp B/P (MAP) Pulse Ox O2 Delivery O2 Flow Rate FiO2 04/10/18 08:34 18 98 Room Air 04/10/18 07:56 97.0 62 152/72 (98) Orders Orders Complete Blood Count With Diff (04/10/18 08:16) Comprehensive Metabolic Panel (04/10/18 08:16) Lipase (04/10/18 08:16) Prothrombin Time / Inr (Pt) (04/10/18 08:16) Act Partial Throm Time (Ptt) (04/10/18 08:16) Urinalysis - C+S If Indicated (04/10/18 08:16) Us Abdomen Gallbladder (04/10/18 ) Iv Access Insert/Monitor (04/10/18 08:16) Ecg Monitoring (04/10/18 08:16) Oximetry (04/10/18 08:16) NPO (04/10/18 08:16) Sodium Chlor 0.9% 1000 Ml Inj (Ns 1000 M (04/10/18 08:16) Ondansetron Odt (Zofran Odt) (04/10/18 08:30) Ed Discharge Order (04/10/18 10:21) Labs Laboratory Tests Test 04/10/18 08:25 04/10/18 08:30 04/10/18 09:29 Urine Color YELLOW Urine Turbidity HAZY Urine pH 5.5 Urine Specific [place] 1.014 Urine Protein NEG mg/dL Urine Glucose (UA) NEG mg/dL Urine Ketones NEG mg/dL Urine Occult Blood SMALL Urine Nitrite NEG Urine Bilirubin NEG Urine Urobilinogen LESS THAN 2.0 MG/DL Urine Leukocyte Esterase SMALL Urine RBC 3 /hpf Urine WBC 1 /hpf Urine Squamous Epithelial Cells 5 /hpf Microscopic Urinalysis Comment CULT NOT INDICATED White Blood Count 3.4 TH/MM3 Red Blood Count 6.04 MIL/MM3 Hemoglobin 13.0 GM/DL Hematocrit 41.2 % Mean Corpuscular Volume 68.2 FL Mean Corpuscular Hemoglobin 21.5 PG Mean Corpuscular Hemoglobin Concent 31.5 % Red Cell Distribution Width 16.1 % Platelet Count 233 TH/MM3 Mean Platelet Volume 9.1 FL Neutrophils (%) (Auto) 54.5 % Lymphocytes (%) (Auto) 38.1 % Monocytes (%) (Auto) 5.3 % Eosinophils (%) (Auto) 1.4 % Basophils (%) (Auto) 0.7 % Neutrophils # (Auto) 1.8 TH/MM3 Lymphocytes # (Auto) 1.3 TH/MM3 Monocytes # (Auto) 0.2 TH/MM3 Eosinophils # (Auto) 0.0 TH/MM3 Basophils # (Auto) 0.0 TH/MM3 CBC Comment DIFF FINAL Differential Comment Blood Urea Nitrogen 17 MG/DL Creatinine 0.96 MG/DL Random Glucose 113 MG/DL Total Protein 7.4 GM/DL Albumin 3.9 GM/DL Calcium Level 8.8 MG/DL Alkaline Phosphatase 85 U/L Aspartate Amino Transf (AST/SGOT) 107 U/L Alanine Aminotransferase (ALT/SGPT) 64 U/L Total Bilirubin 0.3 MG/DL Sodium Level 143 MEQ/L Potassium Level 3.8 MEQ/L Chloride Level 106 MEQ/L Carbon Dioxide Level 29.1 MEQ/L Anion Gap 8 MEQ/L Estimat Glomerular Filtration Rate 72 ML/MIN Lipase 132 U/L Prothrombin Time 10.7 SEC Prothromb Time International Ratio 1.1 RATIO Activated Partial Thromboplast Time 20.5 SEC [facility] Medical Decision Making Medical Screen Exam Complete: Yes Emergency Medical Condition: Yes Differential Diagnosis Cholecystitis, choledocholithiasis, gastroenteritis, muscle spasms Narrative Course 43-year-old male presents emergency department for evaluation of right sided low back pain that is been persistent for 2 weeks. Said that he fell off a ladder 2 weeks ago and was evaluated then here at the hospital. He was told he had bulging disks and was given medication for this. Says he saw his primary care physician approximately 1 week ago and was given hydrocodone and a muscle relaxer. Says that his pain is excruciating, located in the right lower lumbar paraspinous region with radiation of pain to the foot. Says the pain is constant, worse with movement. Denies fevers, loss of bowel or bladder function , saddle anesthesia, IV drug use, direct trauma. Vital signs are stable. Physical exam findings consistent with muscle spasms of the shoulder girdle and paraspinous muscles of the right back, tenderness palpation of the right upper quadrant. Last Impressions Gall Bladder Ultrasound 04/10/18 0000 Signed Impressions: CONCLUSION: 1. Cholelithiasis with minimal sludge. CBC & BMP Diagram 04/10/18 08:30 Total Protein 7.4, Albumin 3.9, Calcium Level 8.8, Alkaline Phosphatase 85, Aspartate Amino Transf (AST/SGOT) 107 H, Alanine Aminotransferase (ALT/SGPT) 64 H, Total Bilirubin 0.3 I suspect the patient has some objective findings of muscle spasm secondary to the discomfort she is having in the right upper quadrant. I do not believe this requires any treatment as an outpatient aside from [id number] medication such as Tylenol or Motrin. Patient be discharged and advised to return for worsening or persistent symptoms. Advised to return if she develops nausea. Counseled on proper nutrition. She is advised to follow-up with a steward/stewardess night or general surgeon for further evaluation. Diagnosis Primary Impression: Cholelithiasis Qualified Codes: K80.20 - Calculus of gallbladder without cholecystitis without obstruction Referrals: Network Control Supervisor General Surgeon Departure Forms: Tests/Procedures, Work Release Enter return to work date: April 12, 2018 Additional Instructions: If your nausea, abdominal pain increases return to the emergency department. You must follow-up with a general surgeon or steward/stewardess night for further evaluation of your symptoms and findings today. Disposition: 01 DISCHARGE HOME Condition: Stable Flora Arroyo April 10, 2018 08:20
[2018-04-10] MEDS ORDERED: ONDANSETRON ODT 4 MG TAB PO ONE (08:30)
[2018-04-10 08:34] VITALS: RESP 18; O2SAT 98
[2018-04-10 08:49] LABS: AUTOMATED NEUTROPHIL # 1.8 TH/MM3 (1.8-7.7); BASOPHIL % 0.7 % (0.0-2.0); EOSINOPHIL % 1.4 % (0.0-4.0); HEMATOCRIT 41.2 % (35.0-46.0); LYMPH % 38.1 % (9.0-44.0); LYMPHOCYTE # 1.3 TH/MM3 (1.0-4.8); MEAN CELL VOLUME 68.2 FL (80.0-100.0); MEAN CORPUSCULAR HEMOGLOBIN 21.5 PG (27.0-34.0); MEAN CORPUSCULAR HGB CONC 31.5 % (32.0-36.0); MEAN PLATELET VOLUME 9.1 FL (7.0-11.0); MONO % 5.3 % (0.0-8.0); MONOCYTE # 0.2 TH/MM3 (0-0.9); NEUT % 54.5 % (16.0-70.0); PLATELET COUNT 233 TH/MM3 (150-450); RED BLOOD COUNT 6.04 MIL/MM3 (4.00-5.30); RED CELL DISTRIBUTION WIDTH 16.1 % (11.6-17.2); WHITE BLOOD COUNT 3.4 TH/MM3 (4.0-11.0)
[2018-04-10 08:58] LABS: BILIRUBIN, URINE NEG (NEG); BLOOD, URINE SMALL (NEG); GLUCOSE,URINE NEG (NEG); KETONE, URINE NEG (NEG); NITRITE,URINE NEG (NEG); PH, URINE 5.5 (5.0-8.5); SQUAMOUS EPITHELIAL CELL URINE 5 /hpf (0-5); URINE COLOR YELLOW (YELLW/STRAW); URINE LEUKOCYTE ESTERASE SMALL (NEG)
[2018-04-10 09:02] LABS: ALBUMIN 3.9 GM/DL (3.4-5.0); ALT (GPT) 64 U/L (10-53); AST (GOT) 107 U/L (15-37); BICARBONATE 29.1 MEQ/L (21.0-32.0); BLOOD UREA NITROGEN 17 MG/DL (7-18); CALCIUM 8.8 MG/DL (8.5-10.1); CHLORIDE 106 MEQ/L (98-107); CREATININE 0.96 MG/DL (0.50-1.00); GLOMERULAR FILTRATION RATE 72 ML/MIN (>89); GLUCOSE,RANDOM 113 MG/DL (74-106); SODIUM (NA) 143 MEQ/L (136-145)
[2018-04-10 09:05] LABS: ALKALINE PHOSPHATASE 85 U/L (45-117); TOTAL BILIRUBIN ADULT 0.3 MG/DL (0.2-1.0); TOTAL PROTEIN 7.4 GM/DL (6.4-8.2)
[2018-04-10 09:57] LABS: INTERNATIONAL NORMALIZED RATIO 1.1 RATIO; PROTHROMBIN TIME - PATIENT 10.7 SEC (9.8-11.6)
--- NOTE | 2018-04-10 10:03 | RADRPT ---
EXAM DATE: 04/10/2018 9:57 AM EDT AGE/SEX: 57 years / Female INDICATIONS: Right upper quadrant pain. CLINICAL DATA: This is the patient's initial encounter. Patient reports that signs and/or symptoms h ave been present for 1 day and indicates a pain score of 5/10. MEDICAL/SURGICAL HISTORY: Hypertension. None. COMPARISON: No prior [place] exams available for comparison MEASUREMENTS (cm x cm x cm): Liver:__ 15.7 cm length Common Bile Duct:__ 7mm FINDINGS: Liver: Normal echotexture without focal lesion or ductal dilatation. Portal Vein: Hepatopedal flow seen in portal vein. Common Duct: No intralumincal mass or stone visualized. Gallbladder: Mobile gallstones. There is minimal sludge. Gallbladder wall measures 3 mm. No perichol ecystic fluid Pancreas: The visualized portions are within normal limits Right Kidney: No mass or hydronephrosis Other: None. CONCLUSION: 1. Cholelithiasis with minimal sludge. Electronically signed by: Glen Child MD 04/10/2018 10:01 AM EDT
== END 2018-04-10 10:54 | disposition home or self-care (01) ==
LOC: NEPD 07:48
DX: K80.20 Calculus of gallbladder without cholecystitis without obstruction (principal); M62.838 Other muscle spasm; M25.511 Pain in right shoulder; M54.5 Low back pain; R10.9 Unspecified abdominal pain; R42 Dizziness and giddiness; I10 Essential (primary) hypertension
CPT/HCPCS: 76705; 80053; 81001; 83690; 85025; 85610; 85730; 96360; 99284; J7030